=== PATIENT | male | born 1955 | race Caucasian/White ===

== ENCOUNTER → 2016-08-10 | Outpatient (CLI) | payer OTHER ==
[~2016-08-10] MED LIST: NOHOMEMEDS
== END | disposition home or self-care (01) ==
LOC: CDC 09:23
DX: I49.9 Cardiac arrhythmia, unspecified (principal); G56.01 Carpal tunnel syndrome, right upper limb; M65.311 Trigger thumb, right thumb; M79.641 Pain in right hand
CPT/HCPCS: 93000